=== PATIENT | male | born 1950 | race Caucasian/White ===

== ENCOUNTER 2024-04-11 18:09 | Inpatient (IN) | payer OTHER, MEDICAID ==
[~2024-04-11] VITALS: Ht 177.8 cm; Wt 86.3 kg
[2024-04-11 18:05] VITALS: RESP 22
[~2024-04-11 18:09] MED LIST: FLUC100T MT; LEVO750T68 MT
[2024-04-11] MEDS: ASPIRIN 81MG TABLET PO ONE (19:12)
[2024-04-11] MEDS: FUROSEMIDE 40MG/4ML VIAL IV ONE (19:12)
[2024-04-11 20:43] LABS: BASOPHILS % 0.3 % (0.0-2.0); EOSINOPHILS % 0.1 % (0.0-5.0); HEMATOCRIT. 48.1 % (42.0-52.0); HEMOGLOBIN. 15.6 g/dL (14.0-18.0); MEAN CORPUSCULAR HEMOGLOBIN 27.4 pg (28.0-32.0); MEAN CORPUSCULAR HGB CONC 32.5 g/dL (31.0-37.0); MEAN CORPUSCULAR VOLUME 84.5 fL (80.0-94.0); MEAN PLATELET VOLUME 7.6 fl (7.4-10.4); MONOCYTES % 7.5 % (2.0-8.0); NEUTROPHILS % 87.1 % (40.0-76.0); PLATELET 269 x1000/uL (130-400); RED BLOOD CELL COUNT 5.69 mill/uL (4.7-6.1); RED CELL DISTRIBUTION WIDTH 15.7 % (11.6-14.6); WHITE BLOOD COUNT 18.5 x1000/uL (4.5-11.0)
[2024-04-11 20:51] LABS: DIFFERENTIAL COMMENT 1
[2024-04-11 20:53] LABS: CARBON DIOXIDE 26 mEq/L (21-32); CHLORIDE 107 mEq/L (98-107); POTASSIUM 3.4 mEq/L (3.5-5.1); SODIUM 143 mEq/L (136-145)
[2024-04-11 20:54] LABS: CALCIUM 9.2 mg/dL (8.7-10.4)
[2024-04-11 20:59] LABS: GLUCOSE 109 mg/dL (70-105); TROPONIN I HIGH SENSITIVITY 22 ng/L (3.0-53); UREA NITROGEN BLOOD 11 mg/dL (9-23)
[2024-04-11 21:25] VITALS: RESP 20
[2024-04-11 22:12] LABS: TROPONIN I HIGH SENSITIVITY 23 ng/L (3.0-53)
[2024-04-11] MEDS: VANCOMYCIN 1G PREMIX 200 ML IV ONE (23:30)
[2024-04-12] MEDS: SODIUM CHLORIDE 0.9% (SEPSIS BOLUS) IV ONE (00:04)
[2024-04-12] MEDS: PIPERACILLIN/TAZO 3.375G/50ML 50 ML IV ONE (00:04)
[2024-04-12 00:07] LABS: INR 1.2; PROTHROMBIN TIME 13.1 sec (9.6-11.0)
[2024-04-12 00:15] LABS: LACTIC ACID 2.8 mmol/L (0.4-2.0)
[2024-04-12 03:20] VITALS: RESP 25
[2024-04-12 08:10] VITALS: RESP 21
[2024-04-12] MEDS ORDERED: ONDANSETRON HCL 4MG/2ML INJ IV PRN (10:00)
[2024-04-12] MEDS ORDERED: ACETAMINOPHEN 325MG TABLET PO PRN (10:00)
[2024-04-12] MEDS: FLUCONAZOLE 100MG TABLET PO SCH (12:00)
[2024-04-12 12:30] VITALS: RESP 19
[2024-04-12] MEDS: FUROSEMIDE 40MG/4ML VIAL IVP SCH (13:11)
[2024-04-12] MEDS: PIPERACILLIN/TAZO 3.375G/50ML 50 ML IV SCH (14:58)
[2024-04-12 16:00] VITALS: RESP 16
[2024-04-12 23:25] VITALS: BP 136/63; PULSE 90; RESP 16; TEMP 36.14
[2024-04-13] VITALS (7 sets, daily range): BP systolic 104–132; BP diastolic 49–75; PULSE 85–96; RESP 18–22; TEMP 36.22512–37.39188; O2SAT 94–100
[2024-04-13] MEDS: IPRATROPIUM/ALBUTEROL 0.5-3(2.5)MG/3ML NEB HHN SCH (00:54)
[2024-04-13] MEDS: LOSARTAN 25 MG TABLET PO SCH (01:00)
[2024-04-13 07:40] LABS: CHLORIDE 109 mEq/L (98-107); POTASSIUM 3.4 mEq/L (3.5-5.1); SODIUM 144 mEq/L (136-145)
[2024-04-13 07:41] LABS: CALCIUM 9.2 mg/dL (8.7-10.4); CARBON DIOXIDE 25 mEq/L (21-32)
[2024-04-13 07:46] LABS: CREATININE 0.9 mg/dL (0.6-1.3); GLUCOSE 120 mg/dL (70-105); UREA NITROGEN BLOOD 16 mg/dL (9-23)
[2024-04-13 08:00] LABS: BASOPHILS % 0.2 % (0.0-2.0); EOSINOPHILS % 0.2 % (0.0-5.0); HEMATOCRIT. 44.5 % (42.0-52.0); HEMOGLOBIN. 14.6 g/dL (14.0-18.0); LYMPHOCYTES % 7.4 % (20.0-50.0); MEAN CORPUSCULAR HEMOGLOBIN 27.8 pg (28.0-32.0); MEAN CORPUSCULAR HGB CONC 32.8 g/dL (31.0-37.0); MEAN CORPUSCULAR VOLUME 84.6 fL (80.0-94.0); MEAN PLATELET VOLUME 7.3 fl (7.4-10.4); MONOCYTES % 10.5 % (2.0-8.0); NEUTROPHILS % 81.7 % (40.0-76.0); PLATELET 315 x1000/uL (130-400); RED BLOOD CELL COUNT 5.26 mill/uL (4.7-6.1); RED CELL DISTRIBUTION WIDTH 15.6 % (11.6-14.6); WHITE BLOOD COUNT 14.3 x1000/uL (4.5-11.0)
[2024-04-13] MEDS: CARVEDILOL 3.125 MG TABLET PO SCH (09:00)
[2024-04-13] MEDS: MORPHINE SULFATE 2 MG/ML INJ (NOT FOR IM USE) IV PRN (21:11)
[2024-04-14] VITALS (9 sets, daily range): BP systolic 103–136; BP diastolic 58–76; PULSE 74–98; RESP 16–22; TEMP 35.72508–37.39188; O2SAT 95–100
[2024-04-14] MEDS ORDERED: NALOXONE HCL 0.4MG/ML VIAL IV PRN (15:15)
[2024-04-15] VITALS (11 sets, daily range): BP systolic 103–135; BP diastolic 63–80; PULSE 78–99; RESP 16–26; TEMP 36.1–37.2; O2SAT 95–100
[2024-04-15 08:17] LABS: BASOPHILS % 0.2 % (0.0-2.0); EOSINOPHILS % 0.2 % (0.0-5.0); HEMATOCRIT. 46.3 % (42.0-52.0); HEMOGLOBIN. 14.8 g/dL (14.0-18.0); LYMPHOCYTES % 10.1 % (20.0-50.0); MEAN CORPUSCULAR VOLUME 84.5 fL (80.0-94.0); MEAN PLATELET VOLUME 7.3 fl (7.4-10.4); MONOCYTES % 11.2 % (2.0-8.0); NEUTROPHILS % 78.3 % (40.0-76.0); PLATELET 372 x1000/uL (130-400); RED BLOOD CELL COUNT 5.48 mill/uL (4.7-6.1); RED CELL DISTRIBUTION WIDTH 15.7 % (11.6-14.6); WHITE BLOOD COUNT 14.1 x1000/uL (4.5-11.0)
[2024-04-15 08:38] LABS: POTASSIUM 3.4 mEq/L (3.5-5.1)
[2024-04-15 08:40] LABS: CALCIUM 9.3 mg/dL (8.7-10.4)
[2024-04-15] MEDS: FLUCONAZOLE 40 MG/ML ORAL SYRINGE NG SCH (09:27)
[2024-04-15 13:15] LABS: BG BASE EXCESS 5.7 mmol/L (-2.0-3.0); BG CARBOXYHEMOGLOBIN 1.1 % (0.5-1.5); BG DEOXYHEMOGLOBIN 8.6 % (0.0-5.0); BG FRACTION INSPIRED OXYGEN 36; BG HCO3 ACT 29.2 mmol/L (21.0-28.0); BG METHEMOGLOBIN 0.1 % (0.5-1.5); BG OXYGEN SATURATION 91.3 % (94.0-98.0); BG OXYHEMOGLOBIN 90.2 % (94.0-98.0); BG PCO2 38.9 mmHg (35.0-48.0); BG PH 7.494 (7.350-7.450); BG PO2 56.6 mmHg (83.0-108.0); BG SAMPLE SITE RIGHT RADIAL; BG TOTAL HEMOGLOBIN 16.4 g/dL (13.5-17.5); BG VENT MODE NASAL CANNULA
[2024-04-15 14:41] LABS: CREATININE 1.2 mg/dL (0.6-1.3)
[2024-04-15] MEDS: METHYLPREDNISOLONE SOD SUCC 40MG/ML (ACT-O-VIAL) IV SCH (15:46)
[2024-04-15 23:38] LABS: BG BASE EXCESS 4.3 mmol/L (-2.0-3.0); BG CARBOXYHEMOGLOBIN 0.5 % (0.5-1.5); BG DEOXYHEMOGLOBIN 6.5 % (0.0-5.0); BG FRACTION INSPIRED OXYGEN 32; BG OXYGEN SATURATION 93.5 % (94.0-98.0); BG PCO2 38.6 mmHg (35.0-48.0); BG PH 7.478 (7.350-7.450); BG PO2 64.8 mmHg (83.0-108.0); BG SAMPLE SITE RIGHT RADIAL; BG TOTAL HEMOGLOBIN 16.5 g/dL (13.5-17.5); BG VENT MODE NASAL CANNULA
[2024-04-16] VITALS (16 sets, daily range): BP systolic 92–135; BP diastolic 52–77; PULSE 84–97; RESP 17–27; TEMP 36.3–38.1; O2SAT 92–99
[2024-04-17] VITALS (21 sets, daily range): BP systolic 83–143; BP diastolic 54–75; PULSE 78–96; RESP 17–36; TEMP 36.1–37.7; O2SAT 86–99
[2024-04-17] MEDS: DOPAMINE 800MG PREMIX (DOUBLE) 250 ML IV PRN (17:14)
[2024-04-18] VITALS (24 sets, daily range): BP systolic 86–120; BP diastolic 60–84; PULSE 89–101; RESP 0–32; TEMP 36.6–37.3; O2SAT 89–98
[2024-04-18] MEDS: DOPAMINE 800MG PREMIX (DOUBLE) 250 ML IV SCH (10:39)
[2024-04-18] MEDS ORDERED: MORP2VIA IJ (21:29)
== END 2024-04-19 | disposition hospice, home (50) | DRG 189 ==
LOC: ER 18:09 → EDLOC 23:28 → EDBEDREQ 23:31 → EDBEDREQTM 23:31 → UNDOADMIN 04-12 00:10 → 7EST 04-12 00:10 → EDBEDREQSVC 04-12 22:48 → UNDOADMIN 04-12 23:28 → 7EST 04-12 23:28 → UNDOADMIN 04-13 00:38 → 7EST 04-13 02:36 → 5EST 04-15 16:15 → 7EST 04-15 16:42 → 5EST 04-15 16:43
PROVIDERS: ADMIT Internal Medicine; ATTEND Internal Medicine
PROC: 5A09357 Assistance with Respiratory Ventilation, Less than 24 Consecutive Hours, Continuous Positive Airway Pressure (ICD-10-PCS; principal; 2024-04-11)
PROC: 5A09357 Assistance with Respiratory Ventilation, Less than 24 Consecutive Hours, Continuous Positive Airway Pressure (ICD-10-PCS; 2024-04-17)
PROC: 5A0935A Assistance with Respiratory Ventilation, Less than 24 Consecutive Hours, High Flow/Velocity Cannula (ICD-10-PCS; 2024-04-17)
PROC: 5A0935A Assistance with Respiratory Ventilation, Less than 24 Consecutive Hours, High Flow/Velocity Cannula (ICD-10-PCS; 2024-04-18)
DX: J96.00 Acute respiratory failure, unspecified whether with hypoxia or hypercapnia (principal); L89.323 Pressure ulcer of left buttock, stage 3; J69.0 Pneumonitis due to inhalation of food and vomit; I50.22 Chronic systolic (congestive) heart failure; I11.0 Hypertensive heart disease with heart failure; E87.70 Fluid overload, unspecified; E11.9 Type 2 diabetes mellitus without complications; Z51.5 Encounter for palliative care; E87.6 Hypokalemia; D72.829 Elevated white blood cell count, unspecified; Z66 Do not resuscitate; Z86.73 Personal history of transient ischemic attack (TIA), and cerebral infarction without residual deficits
CPT/HCPCS: 36415; 36600; 71045; 80048; 82375; 82805; 83605; 83880; 84145; 84484; 85025; 92610; 93005; 94070; 94640; 94660; 94664; 98960; 99291; J1265; J1940; J2270; J2543; J2920; J3370; J7030